=== PATIENT | male | born 1950 | race Caucasian/White ===

== ENCOUNTER → 2017-02-03 | Outpatient (CLI) | payer BC ==
[2016-05-30 09:51] VITALS: BP 126/81
[~2017-02-03] MED LIST: ASPIRIN E.C. 8181 MG PO; CHANTIX 1MG1 MG PO; ESSENTIAL DAIL1 EACH PO; GLUCOPHAGE PO; KENALOG 60 ML60 M1 TP; LISINOPRIL2.5 MG PO; PRAVACHOL 20MG20 MG PO; THE MEDICINE S300 M1 PO
== END ==
LOC: RAD 08:11
DX: R05 Cough (principal)

== ENCOUNTER → 2017-02-13 | Outpatient (CLI) | payer BC ==
[2016-05-30 09:51] VITALS: BP 126/81
== END ==
LOC: RAD 08:17
DX: R05 Cough (principal); R06.02 Shortness of breath
CPT/HCPCS: Q9967

== ENCOUNTER → 2017-12-23 | Outpatient (CLI) | payer BC ==
[2016-05-30 09:51] VITALS: BP 126/81
[2017-12-23 16:22] LABS: EOS # 0.3 (0.04-0.40); EOS % 3.4 % (0.0-4.0); HEMATOCRIT 44.5 % (42.0-52.0); HEMOGLOBIN 14.5 g/dL (13.5-18.0); MEAN CELL VOLUME 96 fl (78-100); MEAN CORPUSCULAR HEMOGLOBIN 31 pg (27-31); MEAN CORPUSCULAR HGB CONC 33 g/dL (33-37); MEAN PLATELET VOLUME 10.4 fl (7.4-10.4); MONO # 0.7 (0.20-0.80); PLATELET COUNT 309 K/mm3 (130-400); RED BLOOD COUNT 4.64 M/mm3 (4.20-5.60); RED CELL DISTRIBUTION WIDTH 14.3 % (11.5-14.5); WHITE BLOOD COUNT 7.9 K/mm3 (4.8-10.8)
== END ==
LOC: LAB 16:00
PROVIDERS: Nurse Practitioner Family
DX: R05 Cough (principal); J98.8 Other specified respiratory disorders; J20.9 Acute bronchitis, unspecified; M54.5 Low back pain; R42 Dizziness and giddiness

== ENCOUNTER → 2018-03-25 | Outpatient (CLI) | payer BC ==
[2016-05-30 09:51] VITALS: BP 126/81
== END ==
LOC: RAD 16:21
DX: M77.32 Calcaneal spur, left foot (principal)

== ENCOUNTER → 2018-11-18 | Outpatient (CLI) | payer BC ==
[2016-05-30 09:51] VITALS: BP 126/81
== END ==
LOC: RAD 17:09
DX: M19.011 Primary osteoarthritis, right shoulder (principal)

== ENCOUNTER → 2018-11-23 | Outpatient (CLI) | payer BC ==
[2016-05-30 09:51] VITALS: BP 126/81
== END ==
LOC: RAD 15:48
DX: S46.011A Strain of muscle(s) and tendon(s) of the rotator cuff of right shoulder, initial encounter (principal)

== ENCOUNTER → 2019-03-25 | Outpatient (CLI) | payer BC ==
[2016-05-30 09:51] VITALS: BP 126/81
== END ==
LOC: RAD 15:20
DX: Z11.1 Encounter for screening for respiratory tuberculosis (principal); Z86.11 Personal history of tuberculosis

== ENCOUNTER → 2019-04-16 | Outpatient (CLI) | payer BC ==
[2016-05-30 09:51] VITALS: BP 126/81
[2019-04-16 17:30] LABS: EOS # 0.3 (0.04-0.40); EOS % 3.3 % (0.0-4.0); HEMATOCRIT 42.3 % (42.0-52.0); HEMOGLOBIN 14.3 g/dL (13.5-18.0); MEAN CELL VOLUME 97 fl (78-100); MEAN CORPUSCULAR HEMOGLOBIN 33 pg (27-31); MEAN CORPUSCULAR HGB CONC 34 g/dL (33-37); MEAN PLATELET VOLUME 10.7 fl (7.4-10.4); MONO # 0.9 (0.20-0.80); NEU # 4.7 (1.40-6.50); PLATELET COUNT 272 K/mm3 (130-400); RED BLOOD COUNT 4.38 M/mm3 (4.20-5.60); RED CELL DISTRIBUTION WIDTH 13.5 % (11.5-14.5); WHITE BLOOD COUNT 7.9 K/mm3 (4.8-10.8)
[2019-04-16 20:10] LABS: ERYTHROCYTE SEDIMENTATION RATE 22 mm/hr (0-20)
[2019-04-16 21:24] LABS: ALBUMIN 4.4 g/dL (3.4-4.8); POTASSIUM 4.9 mmol/L (3.5-5.1)
[2019-04-16 21:25] LABS: CALCIUM 10.3 mg/dL (8.3-10.5)
[2019-04-16 21:26] LABS: TOTAL PROTEIN 8.4 g/dL (6.2-8.1)
[2019-04-16 21:28] LABS: TOTAL BILIRUBIN 0.3 mg/dL (0.2-1.2)
[2019-04-16 23:25] LABS: PH-URINE 5.5 (5.0 - 8.0); URINE APPEARANCE CLEAR; URINE BILIRUBIN NEGATIVE (NEGATIVE); URINE BLOOD NEGATIVE (NEGATIVE); URINE COLOR YELLOW; URINE GLUCOSE NEGATIVE (NEGATIVE); URINE KETONE NEGATIVE (NEGATIVE); URINE NITRATE NEGATIVE (NEGATIVE); URINE PROTEIN(semi-quant) TRACE mg/dL (NEGATIVE); URINE UROBILINOGEN NORMAL (NORMAL)
[2019-04-16 23:26] LABS: URINE LEUKOCYTE ESTERASE TRACE (NEGATIVE); URINE WBC 0-1 /hpf (0-3)
== END ==
LOC: AMSURD 17:13
PROVIDERS: Internal Medicine
DX: Z00.00 Encounter for general adult medical examination without abnormal findings (principal); Z12.5 Encounter for screening for malignant neoplasm of prostate; Z12.11 Encounter for screening for malignant neoplasm of colon; E11.9 Type 2 diabetes mellitus without complications

== ENCOUNTER → 2019-06-29 | Outpatient (CLI) | payer MEDICARE, BC ==
[2016-05-30 09:51] VITALS: BP 126/81
== END ==
LOC: RAD 08:05
DX: J98.11 Atelectasis (principal); J98.8 Other specified respiratory disorders; J42 Unspecified chronic bronchitis; M54.5 Low back pain; R42 Dizziness and giddiness

== ENCOUNTER → 2020-10-04 | Outpatient (CLI) | payer MEDICARE, BC ==
[2016-05-30 09:51] VITALS: BP 126/81
[2020-10-04 11:29] LABS: EOS # 0.2 (0.04-0.40); EOS % 2.4 % (0.0-4.0); HEMATOCRIT 39.8 % (42.0-52.0); HEMOGLOBIN 13.1 g/dL (13.5-18.0); LYMPH# 1.8 (1.50-4.00); MEAN CELL VOLUME 95 fl (78-100); MEAN CORPUSCULAR HEMOGLOBIN 31 pg (27-31); MEAN CORPUSCULAR HGB CONC 33 g/dL (33-37); MEAN PLATELET VOLUME 10.9 fl (7.4-10.4); MONO # 0.6 (0.20-0.80); NEU # 5.5 (1.40-6.50); PLATELET COUNT 263 K/mm3 (130-400); RED BLOOD COUNT 4.18 M/mm3 (4.20-5.60); RED CELL DISTRIBUTION WIDTH 12.9 % (11.5-14.5)
[2020-10-04 11:31] LABS: POTASSIUM 4.5 mmol/L (3.5-5.1)
[2020-10-04 11:32] LABS: ALBUMIN 4.2 g/dL (3.4-4.8)
[2020-10-04 11:33] LABS: CALCIUM 9.5 mg/dL (8.3-10.5)
[2020-10-04 11:34] LABS: TOTAL PROTEIN 7.5 g/dL (6.2-8.1)
[2020-10-04 11:36] LABS: TOTAL BILIRUBIN 0.4 mg/dL (0.2-1.2)
[2020-10-04 11:41] LABS: MAGNESIUM 1.8 mg/dL (1.60-2.60)
[2020-10-04 11:44] LABS: URINE APPEARANCE CLEAR; URINE COLOR YELLOW
[2020-10-04 11:45] LABS: URINE BILIRUBIN NEGATIVE (NEGATIVE); URINE BLOOD NEGATIVE (NEGATIVE); URINE GLUCOSE NEGATIVE (NEGATIVE); URINE KETONE NEGATIVE (NEGATIVE); URINE LEUKOCYTE ESTERASE NEGATIVE (NEGATIVE); URINE NITRATE NEGATIVE (NEGATIVE); URINE PROTEIN(semi-quant) TRACE mg/dL (NEGATIVE); URINE UROBILINOGEN NORMAL (NORMAL); URINE WBC 0-1 /hpf (0-3)
[2020-10-04 12:45] LABS: ERYTHROCYTE SEDIMENTATION RATE 26 mm/hr (0-20)
[2020-10-04 23:59] LABS: TESTOSTERONE 149 ng/dL (221-716)
== END ==
LOC: LAB 10:55
PROVIDERS: Internal Medicine
DX: Z12.5 Encounter for screening for malignant neoplasm of prostate (principal); E11.9 Type 2 diabetes mellitus without complications; E78.5 Hyperlipidemia, unspecified; K90.9 Intestinal malabsorption, unspecified; F52.21 Male erectile disorder

== ENCOUNTER → 2020-10-09 | Outpatient (CLI) | payer MEDICARE, BC ==
[2016-05-30 09:51] VITALS: BP 126/81
[2020-10-19 13:56] LABS: FOLLICLE STIMULATING HORMONE 11.4; LUTENIZING HORMONE 4.6; PROLACTIN AMS 79.6
== END ==
LOC: LAB 08:35
PROVIDERS: Internal Medicine
DX: R79.89 Other specified abnormal findings of blood chemistry (principal)

== ENCOUNTER → 2020-10-23 | Outpatient (CLI) | payer MEDICARE, BC ==
[2016-05-30 09:51] VITALS: BP 126/81
[2020-10-24 22:24] LABS: CORTISOL, AM (0800) 14 ug/dL (3-20); PROLACTIN AMS 86.2 ng/mL (3.5-19.4)
[2020-10-25 23:58] LABS: ADRENOCORTICOTROPIC HORMONE 13 pg/mL (5-27)
== END ==
LOC: LAB 07:35
PROVIDERS: Internal Medicine
DX: E22.1 Hyperprolactinemia (principal)

== ENCOUNTER → 2021-03-16 | Outpatient (CLI) | payer MEDICARE, BC ==
[2021-03-16 11:59] LABS: BASO # 0.05 (0.02-0.10); EOS # 0.25 (0.04-0.40); EOS % 3.4 % (0.0-4.0); HEMATOCRIT 45.5 % (42.0-52.0); HEMOGLOBIN 15.1 g/dL (13.5-18.0); LYMPH# 1.72 (1.50-4.00); MEAN CELL VOLUME 93 fl (78-100); MEAN CORPUSCULAR HEMOGLOBIN 31 pg (27-31); MEAN CORPUSCULAR HGB CONC 33 g/dL (33-37); MEAN PLATELET VOLUME 10.8 fl (7.4-10.4); MONO # 0.59 (0.20-0.80); NEU # 4.68 (1.40-6.50); PLATELET COUNT 239 K/mm3 (130-400); RED BLOOD COUNT 4.87 M/mm3 (4.20-5.60); RED CELL DISTRIBUTION WIDTH 13.7 % (11.5-14.5); WHITE BLOOD COUNT 7.3 K/mm3 (4.8-10.8)
[2021-03-16 12:40] LABS: ALBUMIN 4.3 g/dL (3.4-4.8); POTASSIUM 4.7 mmol/L (3.5-5.1)
[2021-03-16 12:41] LABS: CALCIUM 9.3 mg/dL (8.3-10.5)
[2021-03-16 12:43] LABS: TOTAL PROTEIN 7.8 g/dL (6.2-8.1)
[2021-03-16 12:45] LABS: TOTAL BILIRUBIN 0.5 mg/dL (0.2-1.2)
== END ==
LOC: LAB 11:02
PROVIDERS: Internal Medicine
DX: E78.5 Hyperlipidemia, unspecified (principal); E11.9 Type 2 diabetes mellitus without complications; R79.89 Other specified abnormal findings of blood chemistry

== ENCOUNTER → 2021-04-23 | Outpatient (CLI) | payer MEDICARE, BC | LOC: LAB 14:33 | DX: Z20.822 Contact with and (suspected) exposure to COVID-19 (principal) ==

== ENCOUNTER → 2021-05-07 | Outpatient (CLI) | payer MEDICARE, BC | LOC: AMSURD 13:37 | DX: Z01.89 Encounter for other specified special examinations (principal) ==

== ENCOUNTER → 2022-01-15 | Outpatient (CLI) | payer MEDICARE, BC ==
[2022-01-15 07:43] LABS: BASO # 0.04 K/mm3 (0.02-0.10); EOS # 0.31 K/mm3 (0.04-0.40); EOS % 4.9 % (0.0-4.0); HEMATOCRIT 47.5 % (42.0-52.0); HEMOGLOBIN 15.5 g/dL (13.5-18.0); LYMPH# 1.49 K/mm3 (1.50-4.00); MEAN CELL VOLUME 96 fl (78-100); MEAN CORPUSCULAR HEMOGLOBIN 31 pg (27-31); MEAN CORPUSCULAR HGB CONC 33 g/dL (33-37); MEAN PLATELET VOLUME 10.3 fl (7.4-10.4); MONO # 0.59 K/mm3 (0.20-0.80); NEU # 3.92 K/mm3 (1.40-6.50); PLATELET COUNT 241 K/mm3 (130-400); RED BLOOD COUNT 4.93 M/mm3 (4.20-5.60); RED CELL DISTRIBUTION WIDTH 14.3 % (11.5-14.5); WHITE BLOOD COUNT 6.4 K/mm3 (4.8-10.8)
[2022-01-15 08:39] LABS: POTASSIUM 4.8 mmol/L (3.5-5.1)
[2022-01-15 08:41] LABS: CALCIUM 9.6 mg/dL (8.3-10.5)
[2022-01-15 08:42] LABS: TOTAL PROTEIN 7.2 g/dL (6.2-8.1)
[2022-01-15 08:44] LABS: TOTAL BILIRUBIN 0.6 mg/dL (0.2-1.2)
[2022-01-15 08:49] LABS: MAGNESIUM 2.07 mg/dL (1.60-2.60)
[2022-01-15 15:31] LABS: PROLACTIN AMS 137.7 ng/mL (3.5-19.4)
== END ==
LOC: LAB 07:11
PROVIDERS: Internal Medicine
DX: Z12.11 Encounter for screening for malignant neoplasm of colon (principal); Z12.5 Encounter for screening for malignant neoplasm of prostate; E78.5 Hyperlipidemia, unspecified; K90.9 Intestinal malabsorption, unspecified; E11.9 Type 2 diabetes mellitus without complications; E23.0 Hypopituitarism; E22.1 Hyperprolactinemia

== ENCOUNTER → 2022-03-30 | Outpatient (CLI) | payer MEDICARE, BC ==
[2022-03-30 12:25] LABS: ALBUMIN 4.2 g/dL (3.4-4.8)
[2022-03-30 12:26] LABS: POTASSIUM 4.7 mmol/L (3.5-5.1)
[2022-03-30 12:27] LABS: CALCIUM 9.4 mg/dL (8.3-10.5)
[2022-03-30 12:28] LABS: TOTAL PROTEIN 7.4 g/dL (6.2-8.1)
[2022-03-30 12:30] LABS: TOTAL BILIRUBIN 0.5 mg/dL (0.2-1.2)
== END ==
LOC: LAB 11:56
PROVIDERS: Nurse Practitioner Family
DX: U07.1 COVID-19 (principal)

== ENCOUNTER → 2022-04-16 | Outpatient (CLI) | payer MEDICARE, BC | LOC: LAB 13:30 | DX: U07.1 COVID-19 (principal) ==

== ENCOUNTER → 2022-07-11 | Outpatient (CLI) | payer MEDICARE, BC ==
[~2022-07-11] VITALS: Ht 157.5 cm; Wt 73.6 kg
[2022-07-11 09:15] VITALS: BP 119/68; BP 119/78
== END ==
LOC: LAB 07:46 → AMSURD 07:46
DX: Z51.81 Encounter for therapeutic drug level monitoring (principal); Z79.899 Other long term (current) drug therapy
CPT/HCPCS: J0834

== ENCOUNTER 2022-09-19 12:18 | Emergency (ER) | payer MEDICARE, BC ==
[2022-09-19 12:50] LABS: BASO # 0.03 K/mm3 (0.02-0.10); EOS # 0.19 K/mm3 (0.04-0.40); EOS % 1.9 % (0.0-4.0); HEMOGLOBIN 14.3 g/dL (13.5-18.0); LYMPH# 1.35 K/mm3 (1.50-4.00); MEAN CELL VOLUME 98 fl (78-100); MEAN CORPUSCULAR HEMOGLOBIN 32 pg (27-31); MEAN CORPUSCULAR HGB CONC 33 g/dL (33-37); MEAN PLATELET VOLUME 10.4 fl (7.4-10.4); MONO # 0.97 K/mm3 (0.20-0.80); NEU # 7.35 K/mm3 (1.40-6.50); PLATELET COUNT 234 K/mm3 (130-400); RED BLOOD COUNT 4.48 M/mm3 (4.20-5.60); RED CELL DISTRIBUTION WIDTH 14.2 % (11.5-14.5); WHITE BLOOD COUNT 9.9 K/mm3 (4.8-10.8)
[2022-09-19 12:56] LABS: ALBUMIN 4.1 g/dL (3.4-4.8); POTASSIUM 4.4 mmol/L (3.5-5.1); SODIUM 136 mmol/L (136-145)
[2022-09-19 12:57] LABS: CALCIUM 9.7 mg/dL (8.3-10.5)
[2022-09-19 12:59] LABS: GLUCOSE 107 mg/dL (75-110); TOTAL PROTEIN 7.5 g/dL (6.2-8.1)
[2022-09-19 13:00] LABS: CARBON DIOXIDE 26 mmol/L (23-31); TOTAL BILIRUBIN 0.5 mg/dL (0.2-1.2)
[2022-09-19 13:04] LABS: AST-SGOT 19 U/L (5-34)
[2022-09-19 13:05] LABS: ALT/SGPT 22 U/L (0-55)
[2022-09-19] MEDS ORDERED: CABERGOLINE0.5 MG PO (13:11)
[2022-09-19] MEDS ORDERED: PIOGLITAZONE HY45 MG PO (13:12)
[2022-09-19] MEDS ORDERED: TESTOSTERONE75 GM TD (13:12)
[2022-09-19] MEDS ORDERED: ROSUVASTATIN CA10 MG PO (13:12)
[2022-09-19 13:16] LABS: TROPONIN-I < 0.030 ng/mL (<0.030)
[2022-09-19] MEDS ORDERED: AMOXICILLIN AND1 TA2 PO (13:55)
[2022-09-19] MEDS ORDERED: PREDNISONE20 MG PO (13:55)
[2022-09-19] MEDS ORDERED: PROAIR HFA0.09 MG/AC IH (13:57)
[2022-09-19 14:14] VITALS: BP 122/74
== END 2022-09-19 14:00 | disposition home or self-care (01) ==
LOC: ED 12:18
PROVIDERS: Family Medicine
DX: M94.0 Chondrocostal junction syndrome [Tietze] (principal); E66.9 Obesity, unspecified
CPT/HCPCS: J1885

== ENCOUNTER → 2023-07-24 | Outpatient (CLI) | payer MEDICARE, BC ==
[~2023-07-24] MED LIST changes: +AMOXICILLIN AND1 TA2 PO; +CABERGOLINE0.5 MG PO; +PIOGLITAZONE HY45 MG PO; +PREDNISONE20 MG PO; +PROAIR HFA0.09 MG/AC IH; +ROSUVASTATIN CA10 MG PO; +TESTOSTERONE75 GM TD
== END ==
LOC: RAD 09:00
DX: Z13.6 Encounter for screening for cardiovascular disorders (principal)

== ENCOUNTER → 2023-09-01 | Outpatient (CLI) | payer MEDICARE, BC ==
[2023-09-03 20:27] LABS: PROLACTIN AMS 61.6 ng/mL (3.5-19.4)
== END ==
LOC: LAB 08:19
DX: D35.2 Benign neoplasm of pituitary gland (principal)

== ENCOUNTER → 2023-12-03 | Outpatient (CLI) | payer MEDICARE, BC | LOC: RAD 08:01 | DX: C67.8 Malignant neoplasm of overlapping sites of bladder (principal); K76.0 Fatty (change of) liver, not elsewhere classified ==

== ENCOUNTER → 2023-12-19 | Outpatient (CLI) | payer MEDICARE, BC ==
[2023-12-19 07:51] LABS: HEMATOCRIT 38.9 % (42.0-52.0); HEMOGLOBIN 12.7 g/dL (13.5-18.0); MEAN PLATELET VOLUME 10.2 fl (7.4-10.4); RED BLOOD COUNT 3.94 M/mm3 (4.20-5.60); RED CELL DISTRIBUTION WIDTH 14.4 % (11.5-14.5); WHITE BLOOD COUNT 7.5 K/mm3 (4.8-10.8)
[2023-12-19 08:03] LABS: CALCIUM 9.4 mg/dL (8.3-10.5)
[2023-12-19 08:04] LABS: TOTAL PROTEIN 6.8 g/dL (6.2-8.1)
[2023-12-19 08:06] LABS: TOTAL BILIRUBIN 0.3 mg/dL (0.2-1.2)
== END ==
LOC: LAB 07:37
DX: Z01.812 Encounter for preprocedural laboratory examination (principal)

== ENCOUNTER 2024-01-25 12:20 | Emergency (ER) | payer MEDICARE, BC ==
[2024-01-25] MEDS ORDERED: Iohexol 300 - 100 ML VIAL IV ONE (13:32)
[2024-01-25] MEDS ORDERED: NS 60 ML IV ONE (13:32)
[2024-03-14 21:33] LABS: ALBUMIN 2.8 g/dL (3.4-4.8); CALCIUM 8.6 mg/dL (8.3-10.5); TOTAL BILIRUBIN 0.4 mg/dL (0.2-1.2); TOTAL PROTEIN 5.6 g/dL (6.2-8.1)
[2024-03-14 22:36] LABS: URINE APPEARANCE OTHER (CLEAR); URINE COLOR RED (YELLOW)
[2024-03-14 22:37] LABS: URINE BILIRUBIN 1+ (NEGATIVE); URINE BLOOD 3+ (NEGATIVE); URINE GLUCOSE NEGATIVE (NEGATIVE); URINE KETONE TRACE (NEGATIVE); URINE LEUKOCYTE ESTERASE 1+ (NEGATIVE); URINE NITRATE NEGATIVE (NEGATIVE); URINE PROTEIN(semi-quant) 3+ (NEGATIVE)
[2024-03-14 22:38] LABS: URINE MUCUS PRESENT (NOT PRESENT)
[2024-03-14 22:41] LABS: HEMATOCRIT 27.5 % (42.0-52.0); HEMOGLOBIN 9.3 g/dL (13.5-18.0); MEAN CELL VOLUME 94 fl (78-100); MEAN CORPUSCULAR HEMOGLOBIN 32 pg (27-31); MEAN CORPUSCULAR HGB CONC 34 g/dL (33-37); MEAN PLATELET VOLUME 9.2 fl (7.4-10.4); PLATELET COUNT 394 K/mm3 (130-400); RED BLOOD COUNT 2.93 M/mm3 (4.20-5.60); RED CELL DISTRIBUTION WIDTH 14.4 % (11.5-14.5); WHITE BLOOD COUNT 10.8 K/mm3 (4.8-10.8)
[2024-03-14 22:42] LABS: BAND 12 % (0-10); LYMPHOCYTE 1 % (20-51); MONOCYTE 3 % (3-10); NEUTROPHILS 84 % (42-75); NUCLEATED RED BLOOD CELL 1 (0-6)
== END 2024-01-25 23:05 | disposition short-term general hospital (02) ==
LOC: ED 12:20
PROVIDERS: Physician Assistant
DX: R10.9 Unspecified abdominal pain (principal); R50.82 Postprocedural fever
CPT/HCPCS: Q9967

== ENCOUNTER → 2024-02-06 | Outpatient (CLI) | payer MEDICARE, BC ==
[2024-02-06 13:25] LABS: BASO # 0.03 K/mm3 (0.02-0.10); EOS # 0.21 K/mm3 (0.04-0.40); EOS % 2.4 % (0.0-4.0); HEMATOCRIT 26.9 % (42.0-52.0); HEMOGLOBIN 8.7 g/dL (13.5-18.0); LYMPH# 1.03 K/mm3 (1.50-4.00); MEAN CELL VOLUME 95 fl (78-100); MEAN CORPUSCULAR HEMOGLOBIN 31 pg (27-31); MEAN CORPUSCULAR HGB CONC 32 g/dL (33-37); MEAN PLATELET VOLUME 9.3 fl (7.4-10.4); NEU # 6.83 K/mm3 (1.40-6.50); PLATELET COUNT 425 K/mm3 (130-400); RED BLOOD COUNT 2.82 M/mm3 (4.20-5.60); RED CELL DISTRIBUTION WIDTH 15.5 % (11.5-14.5); WHITE BLOOD COUNT 8.9 K/mm3 (4.8-10.8)
[2024-02-06 13:33] LABS: ALBUMIN 3.3 g/dL (3.4-4.8)
[2024-02-06 13:34] LABS: CALCIUM 9.5 mg/dL (8.3-10.5)
[2024-02-06 13:36] LABS: TOTAL PROTEIN 6.6 g/dL (6.2-8.1)
[2024-02-06 13:37] LABS: TOTAL BILIRUBIN 0.2 mg/dL (0.2-1.2)
== END ==
LOC: RAD 11:38 → LAB 11:38
PROVIDERS: Nurse Practitioner Family
DX: M79.89 Other specified soft tissue disorders (principal)

== ENCOUNTER → 2024-02-20 | Outpatient (CLI) | payer MEDICARE, BC ==
[2024-02-20 07:59] LABS: BASO # 0.04 K/mm3 (0.02-0.10); EOS # 0.39 K/mm3 (0.04-0.40); HEMATOCRIT 28.4 % (42.0-52.0); LYMPH# 0.92 K/mm3 (1.50-4.00); MEAN CELL VOLUME 95 fl (78-100); MEAN CORPUSCULAR HEMOGLOBIN 30 pg (27-31); MEAN CORPUSCULAR HGB CONC 32 g/dL (33-37); MEAN PLATELET VOLUME 9.3 fl (7.4-10.4); MONO # 0.53 K/mm3 (0.20-0.80); NEU # 4.61 K/mm3 (1.40-6.50); PLATELET COUNT 309 K/mm3 (130-400); RED BLOOD COUNT 2.98 M/mm3 (4.20-5.60); RED CELL DISTRIBUTION WIDTH 14.8 % (11.5-14.5); WHITE BLOOD COUNT 6.5 K/mm3 (4.8-10.8)
[2024-02-20 08:07] LABS: ALBUMIN 3.5 g/dL (3.4-4.8)
[2024-02-20 08:08] LABS: CALCIUM 9.3 mg/dL (8.3-10.5)
[2024-02-20 08:10] LABS: TOTAL PROTEIN 6.8 g/dL (6.2-8.1)
[2024-02-20 08:11] LABS: TOTAL BILIRUBIN 0.2 mg/dL (0.2-1.2)
[2024-02-20 08:16] LABS: MAGNESIUM 2.04 mg/dL (1.60-2.60)
[2024-02-20 23:34] LABS: PROLACTIN AMS 14.7 ng/mL (3.5-19.4)
== END ==
LOC: LAB 07:22
PROVIDERS: Internal Medicine
DX: K90.9 Intestinal malabsorption, unspecified (principal); E11.9 Type 2 diabetes mellitus without complications; E22.1 Hyperprolactinemia; E78.5 Hyperlipidemia, unspecified; M79.89 Other specified soft tissue disorders

== ENCOUNTER → 2024-03-09 | Outpatient (CLI) | payer MEDICARE, BC ==
[~2024-03-09] MED LIST changes: +Iohexol 300 - 100 ML VIAL IV ONE
== END ==
LOC: RAD 09:00
DX: K65.1 Peritoneal abscess (principal); A49.8 Other bacterial infections of unspecified site
CPT/HCPCS: Q9967

== ENCOUNTER → 2024-04-13 | Outpatient (CLI) | payer MEDICARE, BC ==
[~2024-04-13] MED LIST changes: -Iohexol 300 - 100 ML VIAL IV ONE
[2024-04-13 08:27] LABS: BASO # 0.04 K/mm3 (0.02-0.10); EOS # 0.21 K/mm3 (0.04-0.40); EOS % 3.3 % (0.0-4.0); HEMATOCRIT 32.8 % (42.0-52.0); HEMOGLOBIN 10.3 g/dL (13.5-18.0); LYMPH# 0.93 K/mm3 (1.50-4.00); MEAN CELL VOLUME 90 fl (78-100); MEAN CORPUSCULAR HEMOGLOBIN 28 pg (27-31); MEAN CORPUSCULAR HGB CONC 31 g/dL (33-37); MEAN PLATELET VOLUME 10.2 fl (7.4-10.4); MONO # 0.59 K/mm3 (0.20-0.80); NEU # 4.59 K/mm3 (1.40-6.50); PLATELET COUNT 157 K/mm3 (130-400); RED BLOOD COUNT 3.63 M/mm3 (4.20-5.60); RED CELL DISTRIBUTION WIDTH 14.6 % (11.5-14.5); WHITE BLOOD COUNT 6.4 K/mm3 (4.8-10.8)
== END ==
LOC: LAB 08:18
PROVIDERS: Internal Medicine
DX: E11.9 Type 2 diabetes mellitus without complications (principal); D64.9 Anemia, unspecified

== ENCOUNTER → 2024-04-23 | Outpatient (CLI) | payer MEDICARE, BC ==
[~2024-04-23] VITALS: Ht 157.5 cm; Wt 76.2 kg
== END ==
LOC: CARDREHAB 07:57
DX: Z01.818 Encounter for other preprocedural examination (principal); R07.89 Other chest pain
CPT/HCPCS: A9500

== ENCOUNTER → 2024-05-31 | Outpatient (CLI) | payer MEDICARE, BC ==
[2024-05-31 08:22] LABS: BASO # 0.03 K/mm3 (0.02-0.10); EOS # 0.28 K/mm3 (0.04-0.40); EOS % 4.8 % (0.0-4.0); HEMATOCRIT 41.4 % (42.0-52.0); HEMOGLOBIN 13.3 g/dL (13.5-18.0); LYMPH# 1.25 K/mm3 (1.50-4.00); MEAN CELL VOLUME 94 fl (78-100); MEAN CORPUSCULAR HEMOGLOBIN 30 pg (27-31); MEAN CORPUSCULAR HGB CONC 32 g/dL (33-37); MEAN PLATELET VOLUME 11.2 fl (7.4-10.4); MONO # 0.62 K/mm3 (0.20-0.80); RED BLOOD COUNT 4.42 M/mm3 (4.20-5.60); RED CELL DISTRIBUTION WIDTH 14.2 % (11.5-14.5); WHITE BLOOD COUNT 5.8 K/mm3 (4.8-10.8)
[2024-05-31 08:25] LABS: ALBUMIN 4.2 g/dL (3.4-4.8)
[2024-05-31 08:27] LABS: CALCIUM 9.8 mg/dL (8.3-10.5)
[2024-05-31 08:28] LABS: TOTAL PROTEIN 7.4 g/dL (6.2-8.1)
[2024-05-31 08:30] LABS: TOTAL BILIRUBIN 0.4 mg/dL (0.2-1.2)
[2024-05-31 08:35] LABS: MAGNESIUM 2.23 mg/dL (1.60-2.60)
[2024-05-31 08:48] LABS: PLATELET COUNT 242 K/mm3 (130-400)
== END ==
LOC: LAB 07:53
PROVIDERS: Internal Medicine
DX: E11.9 Type 2 diabetes mellitus without complications (principal); D64.9 Anemia, unspecified

== ENCOUNTER → 2024-06-08 | Outpatient (CLI) | payer MEDICARE, BC ==
[2024-06-08 08:29] LABS: BASO # 0.02 K/mm3 (0.02-0.10); EOS # 0.25 K/mm3 (0.04-0.40); EOS % 4.8 % (0.0-4.0); HEMATOCRIT 41.1 % (42.0-52.0); HEMOGLOBIN 13.2 g/dL (13.5-18.0); LYMPH# 1.29 K/mm3 (1.50-4.00); MEAN CELL VOLUME 95 fl (78-100); MEAN CORPUSCULAR HEMOGLOBIN 30 pg (27-31); MEAN CORPUSCULAR HGB CONC 32 g/dL (33-37); MONO # 0.53 K/mm3 (0.20-0.80); NEU # 3.07 K/mm3 (1.40-6.50); PLATELET COUNT 269 K/mm3 (130-400); RED BLOOD COUNT 4.34 M/mm3 (4.20-5.60); RED CELL DISTRIBUTION WIDTH 14.1 % (11.5-14.5); WHITE BLOOD COUNT 5.2 K/mm3 (4.8-10.8)
[2024-06-08 08:35] LABS: CALCIUM 9.8 mg/dL (8.3-10.5)
[2024-06-08 08:38] LABS: TOTAL BILIRUBIN 0.3 mg/dL (0.2-1.2)
== END ==
LOC: LAB 08:02
PROVIDERS: Urology
DX: C67.8 Malignant neoplasm of overlapping sites of bladder (principal)

== ENCOUNTER → 2024-06-10 | Outpatient (CLI) | payer MEDICARE | LOC: RAD 07:54 | DX: C67.9 Malignant neoplasm of bladder, unspecified (principal) ==

== ENCOUNTER → 2024-08-27 | Outpatient (CLI) | payer MEDICARE, BC ==
[2024-08-27 08:20] LABS: BASO # 0.03 K/mm3 (0.02-0.10); EOS # 0.23 K/mm3 (0.04-0.40); EOS % 4.4 % (0.0-4.0); HEMATOCRIT 43.4 % (42.0-52.0); HEMOGLOBIN 14.2 g/dL (13.5-18.0); LYMPH# 0.99 K/mm3 (1.50-4.00); MEAN CELL VOLUME 94 fl (78-100); MEAN CORPUSCULAR HEMOGLOBIN 31 pg (27-31); MEAN CORPUSCULAR HGB CONC 33 g/dL (33-37); MEAN PLATELET VOLUME 9.7 fl (7.4-10.4); MONO # 0.53 K/mm3 (0.20-0.80); NEU # 3.43 K/mm3 (1.40-6.50); PLATELET COUNT 227 K/mm3 (130-400); RED CELL DISTRIBUTION WIDTH 14.4 % (11.5-14.5); WHITE BLOOD COUNT 5.2 K/mm3 (4.8-10.8)
[2024-08-27 08:28] LABS: ALBUMIN 4.1 g/dL (3.4-4.8)
[2024-08-27 08:29] LABS: CALCIUM 9.8 mg/dL (8.3-10.5)
[2024-08-27 08:32] LABS: TOTAL BILIRUBIN 0.4 mg/dL (0.2-1.2)
[2024-08-27 09:21] LABS: URINE APPEARANCE CLOUDY (CLEAR); URINE BILIRUBIN NEGATIVE (NEGATIVE); URINE BLOOD TRACE (NEGATIVE); URINE COLOR YELLOW (YELLOW); URINE GLUCOSE NEGATIVE (NEGATIVE); URINE KETONE NEGATIVE (NEGATIVE); URINE NITRATE POSITIVE (NEGATIVE); URINE PROTEIN(semi-quant) TRACE (NEGATIVE)
[2024-08-27 09:22] LABS: URINE LEUKOCYTE ESTERASE 1+ (NEGATIVE); URINE WBC >50 /hpf (0-3)
[2024-08-27 22:36] LABS: PROLACTIN AMS 24.8 ng/mL (3.5-19.4)
== END ==
LOC: LAB 07:57
PROVIDERS: Internal Medicine
DX: Z12.5 Encounter for screening for malignant neoplasm of prostate (principal); Z12.11 Encounter for screening for malignant neoplasm of colon; K76.0 Fatty (change of) liver, not elsewhere classified; K90.9 Intestinal malabsorption, unspecified; E22.1 Hyperprolactinemia; E78.5 Hyperlipidemia, unspecified; E23.0 Hypopituitarism; E11.9 Type 2 diabetes mellitus without complications

== ENCOUNTER → 2024-12-13 | Outpatient (CLI) | payer MEDICARE, BC ==
[2024-12-13 07:38] LABS: BASO # 0.02 K/mm3 (0.02-0.10); EOS # 0.19 K/mm3 (0.04-0.40); HEMATOCRIT 44.5 % (42.0-52.0); HEMOGLOBIN 14.7 g/dL (13.5-18.0); LYMPH# 0.72 K/mm3 (1.50-4.00); MEAN CELL VOLUME 95 fl (78-100); MEAN CORPUSCULAR HEMOGLOBIN 32 pg (27-31); MEAN CORPUSCULAR HGB CONC 33 g/dL (33-37); MEAN PLATELET VOLUME 10.2 fl (7.4-10.4); MONO # 0.52 K/mm3 (0.20-0.80); PLATELET COUNT 201 K/mm3 (130-400); RED BLOOD COUNT 4.67 M/mm3 (4.20-5.60); RED CELL DISTRIBUTION WIDTH 13.7 % (11.5-14.5); WHITE BLOOD COUNT 6.4 K/mm3 (4.8-10.8)
[2024-12-13 07:43] LABS: ALBUMIN 3.8 g/dL (3.4-4.8)
[2024-12-13 07:45] LABS: TOTAL PROTEIN 6.8 g/dL (6.2-8.1)
[2024-12-13 07:47] LABS: TOTAL BILIRUBIN 0.5 mg/dL (0.2-1.2)
== END ==
LOC: RAD 07:21
PROVIDERS: Urology
DX: C77.9 Secondary and unspecified malignant neoplasm of lymph node, unspecified (principal); C67.8 Malignant neoplasm of overlapping sites of bladder; Z90.6 Acquired absence of other parts of urinary tract